=== PATIENT | female | born 1965 | race Caucasian/White ===

== ENCOUNTER → 2017-03-09 | Outpatient (CLI) | payer BC | LOC: FIMAGING 14:46 | PROVIDERS: ATTEND Physician Assistant Surgical | DX: S22.080S Wedge compression fracture of T11-T12 vertebra, sequela (principal); M40.205 Unspecified kyphosis, thoracolumbar region ==

== ENCOUNTER → 2017-03-23 | Outpatient (CLI) | payer BC | LOC: FIMAGING 16:57 | PROVIDERS: ATTEND Physician Assistant Surgical | DX: S22.080A Wedge compression fracture of T11-T12 vertebra, initial encounter for closed fracture (principal) ==